=== PATIENT | male | born 1945 | race Caucasian/White ===

== ENCOUNTER 2019-01-31 10:15 | Day surgery (SDC) ==
--- NOTE | 2019-01-21 10:39 | EKG Report ---
Test Performed on : 01/21/2019 10:32:31 AM Test Reason : pat Blood Pressure : / mmHG Vent. Rate : 069 BPM Atrial Rate : 069 BPM P-R Int : 116 ms QRS Dur : 092 ms QT Int : 390 ms P-R-T Axes : 053 024 033 degrees QTc Int : 417 ms Sinus rhythm. with marked sinus arrhythmia. Otherwise normal ECG When compared with ECG of 24-APR-2015 15:36, No significant change was found Unconfirmed Result
[2019-01-21 11:18] LABS: HEMATOCRIT 36.1 % (42.0-52.0); HEMOGLOBIN 11.9 g/dL (14.0-18.0); MPV 9.6 FL (7.4-10.4); RBC 3.61 XMIL (4.7-6.1); RDW 13.3 % (11.5-14.5); WBC 7.89 X1000 (4.8-10.8)
[2019-01-21 11:35] LABS: AGAP 10; BUN 12 mg/dL (8-22); CHLORIDE 105 mmol/L (98-107); COSMO 283; CREATININE 0.6 mg/dL (0.7-1.2); ESTIMATED GFR > 60; GLUCOSE 64 mg/dL (70-104); POTASSIUM 3.1 mmol/L (3.5-5.1); SODIUM 143 mmol/L (136-145); TCO2 28 mmol/L (25-35)
[2019-01-31] MEDS ORDERED: NEOSPORIN G.U. IRRIGANT ONE ×2 (10:30→13:15)
[2019-01-31] MEDS ORDERED: REGLAN ONE (10:33)
[2019-01-31] MEDS ORDERED: LR 1,000 ML ONE (10:33)
[2019-01-31] MEDS ORDERED: KEFZOL 2 GM/D5W 2 GM/50 ML IVPB ONE (10:33)
[2019-01-31] MEDS ORDERED: PEPCID ONE (10:33)
[2019-01-31] MEDS ORDERED: XYLOCAINE-MPF 2% ONE (12:18)
[2019-01-31] MEDS ORDERED: DIPRIVAN 1% ONE (12:19)
[2019-01-31] MEDS ORDERED: B & O 15A SUPP ONE (14:28)
[2019-01-31 14:50] LABS: URINE SOURCE CATH
[2019-01-31 14:55] LABS: BILIRUBIN URINE NEGATIVE (NEGATIVE); BLOOD URINE MODERATE (NEGATIVE); COLOR STRAW; GLUCOSE URINE NEGATIVE (NEGATIVE); KETONE URINE NEGATIVE (NEGATIVE); LEUKOCYTES URINE NEGATIVE (NEGATIVE); NITRITE URINE NEGATIVE (NEGATIVE); PROTEIN URINE NEGATIVE (NEGATIVE); TURBIDITY URINE CLEAR (CLEAR); UROBILINOGEN URINE NORMAL (NORMAL)
[2019-01-31 14:56] LABS: UR EPITHELIAL CELLS <10 /HPF (<10); URINE BACTERIA NEGATIVE /HPF; URINE RBC TNTC /HPF (<10); URINE WBC <10 /HPF (<10)
--- NOTE | 2019-01-31 15:02 | Diag Imaging Result Doc PS360 ---
EXAM: RETROGRADES 2 OR 3 FILMS 01/31/2019 HISTORY: STONE IN BLADDER TECHNIQUE: 43 images, COMMENT: There is some dilatation of the left ureter. No obstructing lesions or filling defects are demonstrated however. There may be a filling defect in the bladder which may represent a stone. There is free retrograde flow on the right side without evidence of filling defect or obstruction. There is some delay of draining on the left side. IMPRESSION: Findings consistent with a bladder stone. Dilatation of the left collecting system and ureter without apparent obstruction. Electronically signed by Blake Salazar 01/31/2019 2:59 PM
[2019-01-31] MEDS: HUMULIN R SUBQ SCH ×2 (17:42→22:45)
[2019-01-31] MEDS ORDERED: B & O 15A SUPP PR PRN (17:45)
[2019-01-31] MEDS ORDERED: LABETALOL IV PRN (17:45)
[2019-01-31] MEDS ORDERED: PHENERGAN IV PRN (17:45)
[2019-01-31] MEDS ORDERED: DITROPAN PO PRN (17:45)
[2019-01-31] MEDS ORDERED: SODIUM CHLORIDE 0.9% INJ PRN (17:45)
[2019-01-31] MEDS ORDERED: NORCO-5 PO PRN (17:45)
[2019-01-31] MEDS: KEFZOL 1 GM/D5W 1 GM/50 ML IVPB IV SCH (17:59)
[2019-01-31] MEDS: NORCO-7.5 PO PRN ×2 (17:59→22:40)
[2019-01-31] MEDS: LR 1,000 ML IV SCH (18:00)
[2019-01-31] MEDS: COLACE PO SCH (22:40)
[2019-01-31] MEDS: PEPCID PO SCH (22:40)
[2019-01-31] MEDS: PERIDEX MT SCH (22:41)
[2019-02-01] MEDS: LR 1,000 ML IV SCH ×2 (00:28→06:14)
[2019-02-01] MEDS: KEFZOL 1 GM/D5W 1 GM/50 ML IVPB IV SCH (01:15)
[2019-02-01] MEDS: NORCO-10 PO PRN ×2 (04:08→13:39)
[2019-02-01] MEDS: HUMULIN R SUBQ SCH ×2 (05:20→13:21)
[2019-02-01 07:01] LABS: HEMATOCRIT 40.7 % (42.0-52.0); HEMOGLOBIN 13.4 g/dL (14.0-18.0); MCH 33.3 PG (27-31); MCHC 32.9 g/dL (33-37); MPV 9.2 FL (7.4-10.4); RBC 4.03 XMIL (4.7-6.1); RDW 13.9 % (11.5-14.5); WBC 9.85 X1000 (4.8-10.8)
[2019-02-01 07:27] LABS: AGAP 8; BUN 10 mg/dL (8-22); CALCIUM 7.7 mg/dL (8.8-10.2); CHLORIDE 102 mmol/L (98-107); COSMO 268; CREATININE 0.6 mg/dL (0.7-1.2); ESTIMATED GFR > 60; GLUCOSE 105 mg/dL (70-104); POTASSIUM 3.8 mmol/L (3.5-5.1); SODIUM 134 mmol/L (136-145); TCO2 24 mmol/L (25-35)
[2019-02-01] MEDS ORDERED: GLUCOPHAGE XR PO SCH (08:00)
[2019-02-01] MEDS ORDERED: OSCAL 500 + D PO SCH (09:00)
[2019-02-01] MEDS ORDERED: BENADRYL PO SCH (09:00)
[2019-02-01] MEDS ORDERED: ASPIRIN PO SCH (09:00)
[2019-02-01] MEDS ORDERED: BIDEX PO SCH (09:00)
[2019-02-01] MEDS ORDERED: PREDNISONE PO SCH (09:00)
[2019-02-01] MEDS ORDERED: ACCOLATE PO SCH (09:00)
[2019-02-01] MEDS ORDERED: AMARYL PO SCH (09:00)
[2019-02-01] MEDS ORDERED: KEPPRA PO SCH (09:00)
[2019-02-01] MEDS: COLACE PO SCH (10:51)
[2019-02-01] MEDS: PEPCID PO SCH (10:51)
[2019-02-01] MEDS: PERIDEX MT SCH (10:52)
--- NOTE | 2019-02-01 11:27 | OPERATIVE NOTE ---
PROCEDURE DATE : 01/31/2019 SURGEON: Conner Dawson MD. PREOPERATIVE DIAGNOSIS: History of hematuria with a bladder stone and obstructive voiding symptoms. POSTOPERATIVE DIAGNOSIS: History of hematuria with a bladder stone and obstructive voiding symptoms. PROCEDURE PERFORMED: 1. Cystoscopic exam with bilateral retrograde ureteropyelogram. 2. Cystolitholapaxy of a stone about 3 cm in diameter. 3. Transurethral resection of the prostate. ANESTHESIA: General via laryngeal mask. FINDINGS: Cystoscopic exam: Urethra - greater than 21 Syrian without stricture. Prostate - coapting lateral lobes, elevated bladder neck length approximately 4 cm. Bladder - normal ureteral orifices bilaterally. The left orifice was slightly larger than the right. There was an approximate 3 cm stone. There were grade 2-3 trabeculations, no diverticula or papillary lesions noted. Rectal exam reveals a prostate of 40-50 g, smooth, and symmetric. Left retrograde ureteropyelogram: Mild hydroureteronephrosis without evidence of obstruction. No filling defects. Right retrograde ureteropyelogram normal. INDICATION FOR PROCEDURE: This 73-year-old male had a history of intermittent gross hematuria. Evaluation revealed a large bladder stone and prostate. DESCRIPTION OF PROCEDURE: After informed consent was obtained from the patient and family and him receiving intravenous antibiotics, he was taken to the main operating room cysto room, placed in the supine position. General anesthesia via laryngeal mask was achieved. He was then placed in a low lithotomy position and prepped and draped in the usual sterile fashion for cystoscopic exam. A 21 Syrian sheath cystoscope was passed through the patient's urethra, prostate, and into the bladder with findings noted above. An 8 Syrian cone-tipped catheter was passed through the cystoscope, engaged left ureteral orifice. Contrast was injected. Right side was accomplished similarly. Findings are as noted above. The 8 Syrian cone-tipped catheter was removed. A 500 micron laser fiber was placed. The laser was set at 8 Hz and 8 reyes and the stone was fragmented, 2300 J was used to completely break up the stone. The laser fiber was removed. The fragments were removed with irrigation and the grasping forceps removed some of the fragments. Several of these were sent to Pathology for analysis. The cystoscope was removed and a 25 Syrian continuous flow resectoscope sheath was placed. The thick gyrus loop electrode was placed. Both ureteral orifices were visualized and the verumontanum was visualized. The resection was started at 6 o'clock position going to the level of the bladder neck to the level of the verumontanum proceeding in a counterclockwise direction to the 2 o'clock position. The resection was started back at the 6 o'clock position going to the level of the bladder neck to the level of the verumontanum proceeding in a clockwise direction to the 10 o'clock position. Tissue from the anterior prostatic urethra was removed between the 2 o'clock and 10 o'clock position from the level of the bladder neck to the level of verumontanum. The chips were removed from the bladder with the [employer] evacuators. Hemostasis was achieved with electrocautery. At completion of the procedure, there were no chips or stone fragments in the bladder, both ureteral orifices were intact. The verumontanum was intact. The bladder was left distended. The resectoscope was removed. A 22 Syrian 3-way [place] catheter was passed through the patient's urethra, prostate, and into the bladder without difficulty, 30 mL sterile placed at Appiah's balloon. The efflux was pink. Continuous bladder irrigation was started. He tolerated the procedure well. Estimated blood loss about 50 mL. He was taken to the recovery room in good condition. cc: Conner Dawson MD
[2019-02-01 11:29] VITALS: BP 126/59
[2019-02-01] MEDS ORDERED: PRAVACHOL PO SCH (21:00)
== END 2019-02-01 15:11 | disposition home or self-care (01) ==
LOC: OR 10:15 → 4N 10:15 → OR 02-01 15:11
PROVIDERS: ATTEND Urology
PROC: UR.TURP (2019-01-31 13:12)
CPT/HCPCS: 74420; 80048; 81001; 82360; 82948; 85027; 88300; 88305; 93005; 93010; 94760; A9270; J0690; J7120; J7506; J7512; Q9966; Q9967; XXXXX

== ENCOUNTER 2019-06-03 14:29 | Inpatient (IN) ==
[2019-06-03] MEDS ORDERED: SALINE LOCK IV FLUID XX ONE (16:48)
[2019-06-03] MEDS ORDERED: DESYREL PO PRN (16:48)
[2019-06-03] MEDS ORDERED: ZOFRAN IV PRN (16:48)
--- NOTE | 2019-06-03 17:23 | Diag Imaging Result Doc PS360 ---
EXAM: CHEST-PORTABLE 06/03/2019 HISTORY: COPD FLAREUP TECHNIQUE: AP portable at 1659 COMMENT: There is platelike opacity in the right base which was also present on 02/17/2015 and is presumably due to fibrosis. 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 Otherwise are has been no significant change. IMPRESSION: Stable chest. Electronically signed by Blake Salazar 06/03/2019 5:20 PM
[2019-06-03 17:47] LABS: BASO# 0.03 X1000 (0.0-0.2); BASO% 0.4 % (0.0-0.8); EOS# 0.08 X1000 (0.0-0.7); HEMATOCRIT 39.4 % (42.0-52.0); HEMOGLOBIN 12.9 g/dL (14.0-18.0); IMM GRAN# 0.02 X1000 (0.0-0.04); IMM GRAN% 0.3 % (0.0-0.5); LYMPH# 3.62 X1000 (1.2-3.4); LYMPH% 46.3 % (20.5-51.1); MCH 32.4 PG (27-31); MCHC 32.7 g/dL (33-37); MONO# 0.34 X1000 (0.11-0.59); MONO% 4.3 % (1.7-9.3); MPV 8.7 FL (7.4-10.4); NEUT# 3.73 X1000 (1.4-6.5); NEUT% 47.7 % (42.2-75.2); PLT 137 X1000 (130-400); RBC 3.98 XMIL (4.7-6.1); RDW 13.6 % (11.5-14.5); WBC 7.82 X1000 (4.8-10.8)
[2019-06-03 18:09] LABS: AGAP 7; BUN 17 mg/dL (8-22); CALCIUM 8.8 mg/dL (8.8-10.2); CHLORIDE 104 mmol/L (98-107); CK TOTAL 60 U/L (24-204); COSMO 275; CREATININE 0.7 mg/dL (0.7-1.2); ESTIMATED GFR > 60; GLUCOSE 95 mg/dL (70-104); SODIUM 137 mmol/L (136-145); TCO2 26 mmol/L (25-35)
[2019-06-03 18:56] LABS: FREE T4 0.92 ng/dL (0.93-1.70); TSH 1.58 uIUmL (0.27-4.20)
[2019-06-03 20:58] LABS: ALLEN TEST YES; BE 0.3 mmoll (-3.0-3.0); BLOOD TYPE ARTERIAL; HCO3-(ACT) 25.1 mmoll (20.0-26.0); METHB 1.6 % (0.0-1.5); O2HB 94.4 % (95.0-99.0); PCO2(98.6) 38 mmHg (35-45); PO2(98.6) 77 mmHg (60-100); SAMPLE BLOOD; SAO2 97.7 % (95.0-100.0); THB 12.8 g/dL (11.5-17.4); pH(98.6) 7.42 (7.35-7.45)
[2019-06-03 21:01] LABS: MODALITY ROOM AIR
[2019-06-03] MEDS: ACCOLATE PO SCH (21:02)
[2019-06-03] MEDS: TYLENOL PO PRN (21:02)
[2019-06-03] MEDS: SOLU-MEDROL IV SCH (21:03)
[2019-06-03] MEDS: GLUCOPHAGE XR PO SCH (21:03)
[2019-06-03] MEDS: LASIX PO SCH (21:03)
[2019-06-03] MEDS: KEPPRA PO SCH (21:03)
[2019-06-03] MEDS: HUMULIN R SUBQ SCH (21:05)
[2019-06-03] MEDS: DUONEB (A & A) INH SCH ×2 (21:13→23:59)
[2019-06-04] MEDS: SOLU-MEDROL IV SCH ×4 (00:51→23:55)
[2019-06-04] MEDS: DUONEB (A & A) INH SCH ×7 (03:21→23:17)
[2019-06-04] MEDS: HUMULIN R SUBQ SCH ×4 (06:19→21:08)
--- NOTE | 2019-06-04 06:59 | PROGRESS NOTE ---
DATE: 06/04/2019 SUBJECTIVE: Mr. Munroe was admitted to [facility] with an acute COPD exacerbation. His initial chest x-ray demonstrated plate-like opacity in the right base, and is due to fibrosis. 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 We started him on supplemental O2, nebulizer treatments, and IV Solu-Medrol. He is breathing more comfortably this morning. His O2 saturations are ranging from 97% to 100% on room air. He has some improved air movement in the upper airways, but still has bilateral end expiratory wheezing with forced expiration throughout the lower lung kelly. Mr. Munroe is with complaint of proximal muscle weakness. He is unable to get out of a chair with his arms crossed. He has been taking pravastatin 40 mg at night. He is with complaint of numbness and tingling in his feet. He has a very ataxic gait. He has difficulty ambulating. He has a history of type 2 noninsulin-dependent diabetes mellitus. Blood sugars are ranging from 140 to 162. He has polyuria and polydipsia. OBJECTIVE: Vital Signs: Temperature 97.6 degrees, pulse 62, respirations 16, BP 123/75. CV: Regular rate and rhythm. Lungs: Bilateral end expiratory wheezing with forced expiration. Abdomen: Soft, nontender, with active bowel sounds. Neurologic: Strength in the proximal thighs is 3 to 4/5. Gait is ataxic. He is unable to perform heel to toe ambulation. He is unable to walk on his heels or on the tips of his toes. ASSESSMENT AND PLAN: 1. Acute chronic obstructive pulmonary disease exacerbation. We will continue DuoNeb nebulizer treatments, intravenous Solu-Medrol, and I am going to add Spiriva 1 inhalation daily. 2. Proximal muscle weakness. CPKs are normal to this point. I will arrange for EMG, as well as nerve conduction studies of the lower extremities. We will consult Infectious Disease Technician for home health. We will consult Physical Therapy. 3. Type 2 noninsulin-dependent diabetes mellitus. We will continue an 1800-calorie [place] [employer] diet, pattern sugars, and a Humulin R sliding scale. cc: Roxanne Ventura MD
[2019-06-04] MEDS: GLUCOPHAGE XR PO SCH ×2 (08:34→16:07)
[2019-06-04] MEDS: LASIX PO SCH (08:34)
[2019-06-04] MEDS: AMARYL PO SCH ×2 (08:34→20:31)
[2019-06-04] MEDS: ASPIRIN PO SCH (08:34)
[2019-06-04] MEDS: ACCOLATE PO SCH ×2 (08:34→20:31)
[2019-06-04] MEDS: KEPPRA PO SCH ×2 (08:34→20:31)
[2019-06-04] MEDS ORDERED: AMARYL PO SCH (09:00)
[2019-06-04] MEDS: SPIRIVA INH SCH (11:36)
--- NOTE | 2019-06-04 12:48 | ECHO REPORT ---
ORDER DATE: 06/04/2019 INDICATION: Dyspnea. FINDINGS: 1. Right atrium is mildly enlarged at 4 cm. 2. Trace tricuspid regurgitation. 3. Normal RV size and systolic function. 4. Trace pulmonic insufficiency. 5. Normal left atrial size at 3.5 cm. 6. No mitral valve prolapse. Trace mitral regurgitation. 7. Normal LV size, end-diastolic dimension of 3.9 cm. Mild left ventricular hypertrophy with an intraventricular septal wall thickness of 1.3 cm. Normal LV systolic function. The estimated EF is 60% with normal wall motion. 8. Aortic valve opens well. It is trileaflet. No evidence of stenosis or insufficiency. 9. Aorta appears normal in visualized segments. 10. No pericardial effusion seen. cc: MD Roxanne Pineda MD
[2019-06-04] MEDS ORDERED: PNEUMOVAX 23 IM ONE (15:14)
[2019-06-04] MEDS: TYLENOL PO PRN (20:46)
[2019-06-05] MEDS: DUONEB (A & A) INH SCH ×3 (03:36→11:06)
[2019-06-05] MEDS: HUMULIN R SUBQ SCH ×2 (06:39→10:46)
[2019-06-05] MEDS: SPIRIVA INH SCH (07:57)
[2019-06-05] MEDS: ASPIRIN PO SCH (08:12)
[2019-06-05] MEDS: ACCOLATE PO SCH (08:12)
[2019-06-05] MEDS: LASIX PO SCH (08:12)
[2019-06-05] MEDS: SOLU-MEDROL IV SCH (08:12)
[2019-06-05] MEDS: AMARYL PO SCH (08:12)
[2019-06-05] MEDS: GLUCOPHAGE XR PO SCH (08:12)
[2019-06-05] MEDS: KEPPRA PO SCH (08:12)
[2019-06-05 11:25] VITALS: BP 132/71
== END 2019-06-05 14:11 | disposition home health service (06) | DRG 192 ==
LOC: DIRADM 14:29 → EDIPHOLD 15:13 → 3N 17:32
PROVIDERS: ADMIT Internal Medicine; ATTEND Internal Medicine